=== PATIENT | male | born 1980 | race American Indian/Alaskan Native ===

== ENCOUNTER 2018-07-02 06:26 | Emergency (ER) | payer BC ==
[2018-07-02] MEDS ORDERED: Sodium Chloride 0.9% 1,000 ML IV STA (06:59)
--- NOTE | 2018-07-02 07:28 | ED PDOC ---
Arrival/HPI - General Chief Complaint: Flu-like Symptoms Historian: Patient - History of Present Illness Narrative History of Present Illness (Text): 07/02/18 07:28 38M w/ no significant past medical history presenting to the Emergency Room accompanied by complaining of flu-like symptoms since yesterday. Patient describes a fever (Tmax of 105 at home), generalized myalgias, headache, and sore throat since yesterday. He reports visiting [facility] for the presented symptoms and was discharged home with amoxicillin after tested negative for the flu. Patient states worsening symptoms this morning associated with nausea and vomiting, prompting him to present to the ED for evaluation. The patient endorses taking Flonase and Tylenol at home with minimal improvement to symptoms. Patient denies any other associated somatic complaints. Patient denies any dizziness, chest pain, shortness of breath, dyspnea on exertion, cough, diaphoresis, abdominal pain, diarrhea, back pain, neck pain, rash or any other complaints. Patient reports possible sick contact with kids at work but denies any recent travel. Time/Duration: 24 hours Symptom Onset: Gradual Symptom Course: Unchanged Activities at Onset: Light Context: Home Past Medical History - Provider Review Nursing Documentation Reviewed: Yes - Infectious Disease Hx of Infectious Diseases: None - Psychiatric Hx Substance Use: No - Anesthesia Hx Anesthesia: No Family/Social History - Physician Review Nursing Documentation Reviewed: Yes Family/Social History: No Known Family HX Smoking Status: Never Smoked Hx Alcohol Use: No Hx Substance Use: No Allergies/Home Meds Allergies/Adverse Reactions: Allergies No Known Allergies Allergy (Verified 07/02/18 06:42) Review of Systems - Physician Review All systems were reviewed & negative as marked: Yes - Review of Systems Constitutional: Fevers Eyes: absent: Vision Changes ENT: Sore Throat Respiratory: absent: SOB, Cough Cardiovascular: absent: Chest Pain, MILLER Gastrointestinal: Nausea, Vomiting. absent: Abdominal Pain, Diarrhea Genitourinary Male: absent: Dysuria, Urinary Output Changes Musculoskeletal: Myalgias. absent: Back Pain, Neck Pain Skin: absent: Rash Neurological: Headache. absent: Dizziness, Focal Weakness Endocrine: absent: Diaphoresis Psychiatric: absent: Anxiety Physical Exam Vital Signs Reviewed: Yes Vital Signs Temp Pulse Resp BP Pulse Ox 07/02/18 06:41 102.5 F H 115 H 19 111/70 97 Temperature: Febrile Blood Pressure: Normal Pulse: Tachycardic Respiratory Rate: Normal Appearance: Positive for: Well-Appearing, Non-Toxic, Other (Lethargic) Pain Distress: None Mental Status: Positive for: Alert and Oriented X 3 - Systems Exam Head: Present: Atraumatic, Normocephalic Pupils: Present: PERRL Extroacular Muscles: Present: EOMI Conjunctiva: Present: Normal Mouth: Present: Dry Neck: Present: Normal Range of Motion. No: Meningeal Signs, MIDLINE TENDERNESS, Paraspinal Tenderness, JVD, Lymphadenopathy Respiratory/Chest: Present: Clear to Auscultation, Good Air Exchange. No: Respiratory Distress, Accessory Muscle Use, Rales, Rhonchi Cardiovascular: Present: Regular Rate and Rhythm, Normal S1, S2. No: Murmurs Abdomen: No: Tenderness, Distention, Peritoneal Signs Upper Extremity: Present: Normal Inspection. No: Cyanosis, Edema Lower Extremity: Present: Normal Inspection. No: Edema Neurological: Present: GCS=15, Speech Normal Skin: Present: Warm, Dry, Normal Color. No: Rashes Psychiatric: Present: Alert, Oriented x 3, Normal Insight, Normal Concentration Medical Decision Making ED Course and Treatment: 07/02/18 07:39 Impression: 38 year old male presents to the Ed for evaluation of flu-like symptoms. Differential Diagnosis included but are not limited to: -- Influenza -- Strep Throat -- Tonsilitis Plan: -- Labs -- Chest X-ray -- Reglan -- IV Fluids -- Toradol -- Tylenol -- Influenza AB -- Rapid Strep -- Urinalysis -- Reassess and disposition Prior Visits: Notes and results from previous visits were reviewed. Progress Notes: 07/02/18 07:40 Labs reviewed with leukocytosis of 14.8 noted with leftward shift. CXR shows no evidence of a Azithromycin ordered. Rapid flu and strep tests negative respectively. 07/02/18 09:13 Patient reexamined and states he feels a little better. He reports no sensation of nausea or emesis at this time. He states he is amenable to taking acetaminophen. - Lab Interpretations Lab Results: 07/02/18 07:20 07/02/18 07:20 Lab Results 07/02/18 07:20: Grp A Beta Strep Ag Negative 07/02/18 07:20: Sodium 138, Potassium 3.6, Chloride 103, Carbon Dioxide 26, Anion Gap 13, BUN 11, Creatinine 0.8, Est GFR ( Amer) > 60, Est GFR (Non- Af Amer) > 60, Random Glucose 104, Calcium 9.8, Phosphorus 2.8, Magnesium 1.8, T otal Bilirubin 1.1, AST 39, ALT 62 H, Alkaline Phosphatase 49, Total Protein 7.8, Albumin 4.4, Globulin 3.5, Albumin/Globulin Ratio 1.3 07/02/18 07:20: Influenza Typ A,B (EIA) Negative for flu a/b 07/02/18 07:20: WBC 14.8 H, RBC 5.42, Hgb 14.9, Hct 45.4, MCV 83.8, MCH 27.5, MCHC 32.8, RDW 13.2, Plt Count 209, MPV 10.3, Neut % (Auto) 82.7 H, Lymph % (Auto) 11.4 L, Garza % (Auto) 5.7, Eos % (Auto) 0.0 L, Baso % (Auto) 0.2, Lymph # (Auto) 1.7, Garza # (Auto) 0.8 H, Eos # (Auto) 0.0, Baso # (Auto) 0.03, Absolute Neuts (auto) 12.20 H 07/02/18 06:59: Urine Color Yellow, Urine Appearance Clear, Urine pH 8.0, Ur Specific [place] 1.010, Urine Protein Negative, Urine Glucose (UA) Negative, Urine Ketones Negative, Urine Blood Small H, Urine Nitrate Negative, Urine Bilirubin Negative, Urine Urobilinogen 0.2, Ur Leukocyte Esterase Negative, Urine RBC 10 - 15 H, Urine WBC 1 - 3, Ur Epithelial Cells None, Urine Bacteria Mod, Urine Other Fiber I have reviewed the lab results: Yes - RAD Interpretation Narrative RAD Interpretations (Text): 07/02/18 08:15 Chest X-ray reviewed by radiologist, shows: FINDINGS: LUNGS: No active pulmonary disease. PLEURA: No significant pleural effusion identified, no pneumothorax apparent. CARDIOVASCULAR: No aortic atherosclerotic calcification present. Normal cardiac size. No pulmonary vascular congestion. OSSEOUS STRUCTURES: No significant abnormalities. VISUALIZED UPPER ABDOMEN: Normal. OTHER FINDINGS: None. IMPRESSION: No interval acute cardiopulmonary disease appreciated.a Radiology Orders: 07/02/18 06:59 CHEST PORTABLE [RAD] Stat Transportation Technician: Radiologist - Medication Orders Current Medication Orders: Sodium Chloride (Sodium Chloride 0.9%) 1,000 mls @ 999 mls/hr IV .Q1H1M STA Stop: 07/02/18 07:59 Last Admin: 07/02/18 07:14 Dose: 999 mls/hr eMAR Start Stop Document 07/02/18 07:14 SHAZIA (Rec: 07/02/18 07:14 SHAZIA [id number]) Intravenous Solution Start Date 07/02/18 Start Time 07:14 End Date 07/02/18 End time 08:14 Total Infusion Time 60 Discontinued Medications Metoclopramide HCl (Reglan) 10 mg IVP STAT STA Stop: 07/02/18 07:00 Last Admin: 07/02/18 07:13 Dose: 10 mg IVP Administration Document 07/02/18 07:13 SHAZIA (Rec: 07/02/18 07:13 SHAZIA [id number]) Charges for Administration # of IVP Administrations 1 Azithromycin (Zithromax 500mg In Ns) 500 mg in 250 mls @ 167 mls/hr IVPB STAT STA; Protocol Stop: 07/02/18 10:05 Last Admin: 07/02/18 08:46 Dose: 167 mls/hr eMAR Start Stop Document 07/02/18 08:46 SHAZIA (Rec: 07/02/18 08:46 SHAZIA [id number]) Intravenous Solution Start Date 07/02/18 Start Time 08:46 End Date 07/02/18 End time 10:20 Total Infusion Time 94 Discontinued Medications Acetaminophen (Tylenol 325mg Tab) 650 mg PO STAT STA Stop: 07/02/18 07:30 Last Admin: 07/02/18 07:48 Dose: Not Given Non-Admin Reason: Patient Refused Al Hydrox/Mg Hydrox/Simethicone 30 ml/Diphenhydramine HCl 75 mg/Lidocaine 30 ml 0 ml PO Q2H STA Stop: 07/02/18 08:07 Sodium Chloride (Sodium Chloride 0.9%) 1,000 mls @ 999 mls/hr IV .Q1H1M STA Stop: 07/02/18 07:59 Last Admin: 07/02/18 07:14 Dose: 999 mls/hr eMAR Start Stop Document 07/02/18 07:14 SHAZIA (Rec: 07/02/18 07:14 SHAZIA [id number]) Intravenous Solution Start Date 07/02/18 Start Time 07:14 End Date 07/02/18 End time 08:14 Total Infusion Time 60 Ketorolac Tromethamine (Toradol) 30 mg IVP STAT STA Stop: 07/02/18 07:30 Last Admin: 07/02/18 07:42 Dose: 30 mg MAR Pain Assessment Document 07/02/18 07:42 SHAZIA (Rec: 07/02/18 07:42 SHAZIA [id number]) Pain Reassessment Is this a pain reassessment? No Sleep Is patient sleeping during reassessment? No Presence of Pain Presence of Pain Yes IVP Administration Document 07/02/18 07:42 SHAZIA (Rec: 07/02/18 07:42 SHAZIA [id number]) Charges for Administration # of IVP Administrations 1 Metoclopramide HCl (Reglan) 10 mg IVP STAT STA Stop: 07/02/18 07:00 Last Admin: 07/02/18 07:13 Dose: 10 mg IVP Administration Document 07/02/18 07:13 SHAZIA (Rec: 07/02/18 07:13 Fernandez [id number]) Charges for Administration # of IVP Administrations 1 - Scribe Statement The provider has reviewed the documentation as recorded by the Scribe Miles Sánchez. All medical record entries made by the Scribe were at my direction and personally dictated by me. I have reviewed the chart and agree that the record accurately reflects my personal performance of the history, physical exam, medical decision making, and the department course for this patient. I have also personally directed, reviewed, and agree with the discharge instructions and disposition. Disposition/Present on Arrival - Present on Arrival Any Indicators Present on Arrival: No History of DVT/PE: No History of Uncontrolled Diabetes: No Urinary Catheter: No History of Decub. Ulcer: No History Surgical Site Infection Following: None - Disposition Have Diagnosis and Disposition been Completed?: Yes Diagnosis: Acute tonsillitis, Headache Disposition: HOME/ ROUTINE Disposition Time: 10:18 Patient Plan: Discharge Condition: IMPROVED Discharge Instructions (ExitCare): Tension Headache (DC) Print Language: [place] Additional Instructions: All medical record entries made by the Scribe were at my direction and personall y dictated by me. I have reviewed the chart and agree that the record accurately reflects my personal performance of the history, physical exam, medical decision making, and the department course for this patient. I have also personally directed, reviewed, and agree with the discharge instructions and disposition. Please STOP taking the amoxicillin and START taking the azithromycin prescription given. Please monitor for worsening headache, neck stiffness or altered levels of consciousness and if noted, return back to the Emergency Room. Please see your PCP in 1 week Try to schedule an appointment with the ENT specialist Prescriptions: Acetaminophen/Butalbital/Caf [Fioricet] 1 tab PO Q6H #6 tab Azithromycin [Z-Alberto] 250 mg PO DAILY #6 tab Mag&Al/Simet/Diphen/Lido [First Magic Mouthwash] 30 ml MM Q4H #1 kit Metoclopramide HCl [Reglan] 10 mg PO Q6H #6 tablet Naproxen 500 mg PO BID #10 tab Referrals: Messi Aguilar DO [Staff Provider] - Follow up with primary Forms: [facility] (Slovenian), WORK NOTE
[2018-07-02 07:50] LABS: BASO # 0.03 K/mm3 (0.0-2.0); BASO % 0.2 % (0.0-3.0); HEMOGLOBIN 14.9 g/dL (14.0-18.0); LYMPH # 1.7 (1.2-3.4); LYMPH % 11.4 % (22.0-35.0); MEAN CELL VOLUME 83.8 fl (80.0-105.0); MEAN CORPUSCULAR HEMOGLOBIN 27.5 pg (25.0-35.0); MEAN CORPUSCULAR HGB CONC 32.8 g/dl (31.0-37.0); MEAN PLATELET VOLUME 10.3 fl (7.0-11.0); MONO # 0.8 (0.1-0.6); MONO % 5.7 % (1.0-6.0); RBC 5.42 10^6/uL (3.5-6.1); RED CELL DISTRIBUTION WIDTH 13.2 % (11.5-14.5); WHITE BLOOD COUNT 14.8 10^3/uL (4.5-11.0)
[2018-07-02 08:03] LABS: ALB/GLOB RATIO 1.3 (1.1-1.8); ALBUMIN 4.4 g/dL (3.0-4.8); ALT/SGPT 62 U/L (7-56); AST/SGOT 39 U/L (17-59); BLOOD UREA NITROGEN 11 mg/dL (7-21); CALCIUM 9.8 mg/dL (8.4-10.5); GFR NON-AFRICAN AMERICAN > 60
[2018-07-02] MEDS ORDERED: Aluminum Hydroxide/Magnesium 30 ML, DiphenhydrAMINE 75 MG, Lidocaine 2% Viscous 30 ML PO STA (08:06)
--- NOTE | 2018-07-02 08:08 | RAD ---
Date of service: 07/02/2018 HISTORY: sob COMPARISON: Chest radiographs 08/03/2011. TECHNIQUE: 1 view obtained. FINDINGS: LUNGS: No active pulmonary disease. PLEURA: No significant pleural effusion identified, no pneumothorax apparent. CARDIOVASCULAR: No aortic atherosclerotic calcification present. Normal cardiac size. No pulmonary vascular congestion. OSSEOUS STRUCTURES: No significant abnormalities. VISUALIZED UPPER ABDOMEN: Normal. OTHER FINDINGS: None. IMPRESSION: No interval acute cardiopulmonary disease appreciated.
[2018-07-02 08:17] VITALS: RESP 18
[2018-07-02] MEDS ORDERED: Azithromycin 500MG/NS 250ml 500 MG/250 ML BAG IVPB STA (08:36)
[2018-07-02 09:01] LABS: URINE BILIRUBIN NEGATIVE (NEGATIVE); URINE BLOOD SMALL (NEGATIVE); URINE GLUCOSE (UA) NEGATIVE (NEGATIVE); URINE LEUKOCYTE ESTERASE NEGATIVE Leu/uL (NEGATIVE); URINE PROTEIN NEGATIVE mg/dL (<30 mg/dL); URINE UROBILINOGEN 0.2 E.U./dL (<1 E.U./dL)
[2018-07-02 09:02] LABS: URINE APPEARANCE CLEAR (CLEAR); URINE COLOR YELLOW (YELLOW)
[2018-07-02 09:14] LABS: URINE BACTERIA MOD /hpf
[2018-07-02] MEDS ORDERED: Apap-Butalbital-Caffeine 325-50-40mg Tab PO STA (09:18)
[2018-07-02 11:05] VITALS: BP 109/66; PULSE 88; TEMP 99.2; O2SAT 99
== END 2018-07-02 11:09 | disposition home or self-care (01) ==
LOC: ED 06:26
DX: J03.90 Acute tonsillitis, unspecified (principal); R51 Headache
CPT/HCPCS: 71045; 80053; 81001; 83735; 84100; 85025; 87070; 87430; 87804; 96361; 96365; 96366; 96375; 99283; J0456; J1885; J2765; J7030